=== PATIENT | male | born 2000 | race Caucasian/White ===

== ENCOUNTER 2024-05-18 23:39 | Emergency (ER) | payer OTHER ==
[~2024-05-18] VITALS: Ht 172.7 cm; Wt 88.6 kg
[2024-05-18 23:46] VITALS: BP 128/88; TEMP 97.2; O2SAT 97
[2024-05-19] MEDS: LIDOCAINE 2% MDV 20ML VIAL SC ONE (00:05)
[2024-05-19] MEDS: ONDANSETRON 4MG ORAL DISINTEGRATING TAB PO ONE (01:38)
[2024-05-19] MEDS: MORPHINE 4 MG/ML 1ML VIAL IM ONE (01:39)
[2024-05-19] MEDS: INSULIN LISPRO (NovoLOG) PER UNIT SC STA (02:37)
[2024-05-19] MEDS ORDERED: CEPHALEXIN 500 MG CAP PO ONE (02:50)
[2024-05-19] MEDS ORDERED: IBUP-1022 PO (02:53)
[2024-05-19] MEDS ORDERED: CEPH500C PO (02:53)
[2024-05-19] MEDS ORDERED: DOXY-323 PO (02:59)
[2024-05-19] MEDS: NEOSPORIN OINT 0.9 GM PKT TOP ONE (03:09)
[2024-05-19] MEDS: DOXYCYCLINE HYCLATE 100MG TABLET PO ONE (03:09)
[2024-05-19] MEDS: BOOSTRIX VACCINE (TETANUS/DIPHTH/ACEL. PERTUSSIS) 0.5ML SYR IM.IMMUN ONE (03:10)
== END 2024-05-19 03:37 | disposition home or self-care (01) ==
LOC: EDBD 23:39 → M ED 23:39
DX: S51.811A Laceration without foreign body of right forearm, initial encounter (principal); S61.210A Laceration without foreign body of right index finger without damage to nail, initial encounter; W25.XXXA Contact with sharp glass, initial encounter; Y92.009 Unspecified place in unspecified non-institutional (private) residence as the place of occurrence of the external cause; Y93.89 Activity, other specified; Y99.9 Unspecified external cause status; E10.9 Type 1 diabetes mellitus without complications; J45.909 Unspecified asthma, uncomplicated; Z88.0 Allergy status to penicillin; Z88.1 Allergy status to other antibiotic agents
CPT/HCPCS: 12004; 73140; 90471; 90715; 96372; 99284; J1815